=== PATIENT | female | born 2000 | race Caucasian/White ===

== ENCOUNTER 2020-01-23 15:14 | Outpatient (REF) | payer BC, SELFPAY ==
--- NOTE | 2020-01-23 13:00 | PAPFT_PTH ---
PATIENT: Marlyn Middleton LOC: [facility] U#:[id number] AGE/SX: 19/F ROOM: RE01/23/[address]: Beverly Lozoya : 2000 BED: DIS: 01/23/2020 SPEC #: [id number] RECD: 01/24/20 12:49 STATUS: NAIDA REWindy #: [id number] FIONA: 01/23/20 13:[address]: Beverly Lozoya DEPT: [facility] Cytology RECD BY: Ivelisse Short Tissues: 1 - CX/ENDOCX FOR PAP SMEARS Procedures: PAP THIN PREP/[facility] Screening Comments: [id number]
== END 2020-01-23 15:34 ==
LOC: NCHCN 15:14
PROVIDERS: PCP Nurse Practitioner Family; Visit Provider Nurse Practitioner Family
DX: Z12.4 Encounter for screening for malignant neoplasm of cervix (principal)
CPT/HCPCS: 88142

== ENCOUNTER 2020-01-24 15:05 | Outpatient (REF) | payer BC, SELFPAY ==
[2020-01-27 14:07] LABS: SARS-CoV-2 RNA Undetected (Undetected); SARS-CoV-2 Specimen Source Nasopharynx
== END 2020-01-24 15:25 ==
LOC: NCHCN 15:05
PROVIDERS: PCP Nurse Practitioner Family; Visit Provider Nurse Practitioner Family
DX: Z11.59 Encounter for screening for other viral diseases (principal)
CPT/HCPCS: U0003

== ENCOUNTER 2020-06-17 13:27 | Outpatient (REF) | payer BC, SELFPAY ==
[2020-06-19 19:27] LABS: COVID-19 RT-PCR UVMMC Result Negative (Negative)
== END 2020-06-17 13:47 ==
LOC: NCHCN 13:27
PROVIDERS: PCP Nurse Practitioner Family; Visit Provider Nurse Practitioner Family
DX: Z11.59 Encounter for screening for other viral diseases (principal)
CPT/HCPCS: U0003

== ENCOUNTER 2023-01-27 18:39 | Outpatient (REF) | payer BC, SELFPAY ==
[2023-01-29 09:07] LABS: HBs Antibody, Quant 166.9 mIU/mL (See Note); Hepatitis B Surface Ab Positive (See Note)
[2023-01-29 11:22] LABS: Varicella IgG Antibody Positive (See Note)
[2023-01-29 13:56] LABS: Chlamydia Result Negative (Negative); GC Result Negative (Negative)
== END 2023-01-27 18:40 | disposition home or self-care (01) ==
LOC: NCHCN 18:39
PROVIDERS: PCP Nurse Practitioner Family; Visit Provider Registered Nurse
DX: Z11.3 Encounter for screening for infections with a predominantly sexual mode of transmission (principal); Z11.59 Encounter for screening for other viral diseases
CPT/HCPCS: 86706; 86787; 87491; 87591

== ENCOUNTER 2023-06-09 17:38 | Outpatient (REF) | payer BC, SELFPAY ==
--- NOTE | 2023-06-09 14:30 | PAPFT_PTH ---
PATIENT: Marlyn Middleton LOC: [facility]#:[id number] AGE/SX: 22/F ROOM: RE06/09/[address]: Yu Head : 2000 BED: DIS: 06/09/2023 SPEC #: [id number] RECD: 06/10/23 13:00 STATUS: NAIDA REWindy #: [id number] FIONA: 06/09/23 14:[address]: Yu Head DEPT: [facility] Cytology RECD BY: Ivelisse Short ENTERED: 06/10/23 13:01 SP TYPE: PAPFT OTHR DR: Beverly Lozoya Tissues: 1 - CX/ENDOCX FOR PAP SMEARS Procedures: PAP THIN PREP/[facility] Screening Comments: [id number] (CHLAMYDIA/GC)
[2023-06-11 18:14] LABS: Chlamydia Result Negative (Negative); GC Result Negative (Negative)
== END 2023-06-09 17:39 | disposition home or self-care (01) ==
LOC: NCHCN 17:38
PROVIDERS: PCP Nurse Practitioner Family; Visit Provider Nurse Practitioner Family
DX: Z00.00 Encounter for general adult medical examination without abnormal findings (principal); Z12.4 Encounter for screening for malignant neoplasm of cervix
CPT/HCPCS: 87491; 87591; 88142